=== PATIENT | female | born 1975 | race Caucasian/White ===

== ENCOUNTER 2021-07-27 17:33 | Emergency (ER) | payer OTHER ==
[2021-07-27 19:06] LABS: HEMOGLOBIN 12.1 gm/dl (12.3-15.3); RED BLOOD COUNT 4.17 M/UL (4.00-5.10); WHITE BLOOD COUNT 8.9 K/UL (4.5-11.0)
[2021-07-27 19:41] LABS: BUN/CREATININE RATIO 18 (0-10)
== END 2021-07-27 22:00 | disposition home or self-care (01) ==
LOC: ER1 17:33
PROVIDERS: Physician Assistant
DX: R05.9 Cough, unspecified (principal); R68.2 Dry mouth, unspecified; Z20.822 Contact with and (suspected) exposure to COVID-19; I10 Essential (primary) hypertension; F17.210 Nicotine dependence, cigarettes, uncomplicated; Z90.710 Acquired absence of both cervix and uterus; Z79.899 Other long term (current) drug therapy
CPT/HCPCS: 71045; 80053; 80307; 81001; 82550; 82553; 83874; 84439; 84443; 84484; 84703; 85025; 87086; 93005; 99285; U0002